=== PATIENT | male | born 1960 | race Caucasian/White ===

== ENCOUNTER 2016-06-25 16:11 | Outpatient (CLI) | payer OTHER ==
--- NOTE | 2016-06-25 18:58 | DIAGNOSTIC IMAGING REPORT ---
PROCEDURE: CT IVP CLINICAL INDICATION: HEMAUTRIA, EVEVATED BP TECHNIQUE: Initially, noncontrast axial images were obtained of the entire abdomen and pelvis. 125 ml of Isovue 300 was injected intravenously, and axial images were obtained of the kidneys in the nephrographic phase, and subsequently through the entire abdomen and pelvis in the excretory phase. Axial CT images through the pelvis in the delayed phase were obtained. Sagittal and coronal reformations were created. COMPARISON: None. FINDINGS: NONCONTRAST ABDOMEN: 9.5 mm calcification centrally in the extrarenal pelvis on the right. There is mild parapelvic inflammation. No other intrarenal calculi. The ureters are normal in course and caliber without ureteral calcifications. No unusual calcifications in the liver or spleen. CONTRAST ABDOMEN: The kidneys uptake and excrete IV contrast uniformly and symmetrically. 11 mm exophytic, upper pole, right renal cyst. No solid renal mass. The excretory images demonstrate no filling defects in the intrarenal or ureteral collecting system. Incidental note of two right renal arteries and two right renal veins. No collecting system duplication. The lung bases, liver, gallbladder, adrenal glands, spleen, pancreas, stomach, upper bowel loops, and mesentery appear normal. Diverticulosis in the transverse and descending colon. NONCONTRAST PELVIS: No suspicious distal ureteral calcifications or hydroureter. No bladder calcifications. CONTRAST PELVIS: The urinary bladder demonstrates normal wall thickness without suspicious irregularity. No bladder mass or unusual enhancement. Mild prostatomegaly. Very small fat containing right inguinal hernia. Pelvic vessels are normal. Normal appendix. No suspicious mass or free pelvic fluid. Intact osseous structures. IMPRESSION: 1. 9.5 mm nonobstructing right renal pelvic calcification with trace amount of surrounding inflammation. Likely source of hematuria. Given its size, urology consult recommended. 2. Diverticulosis without acute diverticulitis. 3. Mild prostatomegaly. All CT scans at this facility use dose modulation, iterative reconstruction, and/or weight-based dosing when appropriate to reduce radiation dose to as low as reasonably achievable.
== END 2016-06-25 23:00 ==
LOC: CT SRH 16:11
DX: N28.89 Other specified disorders of kidney and ureter (principal); K57.30 Diverticulosis of large intestine without perforation or abscess without bleeding; R03.0 Elevated blood-pressure reading, without diagnosis of hypertension